=== PATIENT | male | born 1970 | race Two or more races ===

== ENCOUNTER 2021-01-11 16:23 | Emergency (ER) | payer BC ==
[~2021-01-11] VITALS: Ht 170.2 cm; Wt 70.0 kg
[2021-01-11 16:23] VITALS: BP 142/88
--- NOTE | 2021-01-11 16:48 | PHYS DOC ---
Past Medical History Past Surgical History: Other Additional Past Surgical Histo: Atrial septal defect repair (age 18) General Adult EDM: Chief Complaint: CHEST PAIN HPI: HPI: Patient is a 50 year old male with history of ASD s/p repair at age 18 who presents with left-sided chest pain. Started approximately a week ago, accompanied by a cough. Worse with deep inspiration. Describes it is sharp and radiates to his left arm. Initially was associated with reflux, and improved after burping, but this is no longer the case. Slightly worse with movement of the left shoulder. No trauma to the shoulder or the chest. No lower extremity edema. Not exertional. Denies history of HTN, HLD, DM. He is a frequent tobacco smoker. He does have a left-sided facial twitch, and receives Botox injections on the left side of his face. His is concerned that he had slurred speech at 1 point. He complains of some tingling sensation in his bilateral hands that is intermittent. No weakness. Review of Systems: Review of Systems: Constitutional: Denies fever or chills. [] Eyes: Denies change in visual acuity. [] HENT: Denies nasal congestion or sore throat. [] Respiratory: Reports cough. Denies shortness of breath. [] Cardiovascular: Reports chest chest pain. Denies edema. [] GI: Denies abdominal pain, nausea, vomiting, bloody stools or diarrhea. [] : Denies dysuria. [] Musculoskeletal: Denies back pain or joint pain. [] Integument: Denies rash. [] Neurologic: Denies headache, focal weakness or sensory changes. [] Endocrine: Denies polyuria or polydipsia. [] Lymphatic: Denies swollen glands. [] Psychiatric: Denies depression or anxiety. [] Heart Score: C/O Chest Pain: Yes HEART Score for Chest Pain: HEART Score for Chest Pain Response (Comments) Value History Slighlty/Non-Suspicious 0 ECG Nonspecific Repolarizatio 1 Age >45 - < 65 1 Risk Factors 1 or 2 Risk Factors 1 Troponin < Normal Limit 0 Total 3 Risk Factors: Risk Factors: smoking Risk Scores: Score 0 - 3: 2.5% MACE over next 6 weeks - Discharge Home Score 4 - 6: 20.3% MACE over next 6 weeks - Admit for Clinical Observation Score 7 - 10: 72.7% MACE over next 6 weeks - Early Invasive Strategies Physical Exam: PE: Constitutional: Well developed, well nourished, no acute distress, non-toxic appearance. [] HENT: Normocephalic, atraumatic, bilateral external ears normal, oropharynx moist, no oral exudates, nose normal. [] Eyes: PERRLA, EOMI, conjunctiva normal, no discharge. [] Neck: Normal range of motion, no tenderness, supple, no stridor. [] Cardiovascular:Heart rate regular rhythm, no murmur [] Lungs & Thorax: Bilateral breath sounds clear to auscultation [] Abdomen: Bowel sounds normal, soft, no tenderness, no masses, no pulsatile masses. [] Skin: Warm, dry, no erythema, no rash. [] Back: No tenderness, no CVA tenderness. [] Extremities: No tenderness, no cyanosis, no clubbing, ROM intact, no edema. [] Neurologic: Alert, oriented to person, place, time. Left-sided facial droop more prominent in the lower face (patient states he receives Botox injections in this area). Speech is normal. Cranial nerves III-XII intact (aside from where noted). 5/5 strength in bilateral upper and lower extremities in all dermatomes. No dysmetria with [id number] or [id number] testing. Gait is stable. Visual anthony intact. Follows commands. Psychologic: Affect normal, judgement normal, mood normal. [] EKG: EKG: Sinus rhythm. Rate 85. Left axis deviation. Left atrial abnormality. Incomplete right bundle branch block. [] Radiology/Procedures: Radiology/Procedures: [] Impression: [facility] [address] [place] [address] IMAGING REPORT Signed PATIENT: CLARK DOMINGUEZ V ACCOUNT: [id number] : 1970 LOCATION: ER AGE: 50 SEX: M EXAM STATUS: PRE ER ORD. PHYSICIAN: MARCUS MUELLER MD REASON: left sided chest pain PROCEDURE: CHEST AP ONLY EXAM: CHEST 1 VIEW History: Left-sided chest pain COMPARISON: None available. TECHNIQUE: Single portable radiograph of the chest FINDINGS: The cardiac silhouette is unremarkable. The lungs are clear bilaterally. The costophrenic sulci are clear and well demarcated. IMPRESSION: No radiographic evidence of an acute cardiopulmonary process. Electronically signed by: Noam Griggs MD (01/11/2021 4:53 PM) [id number] DICTATED and SIGNED BY: NOAM GRIGGS MD DATE: 01/11/21 [id number] 0 Course & Med Decision Making: Course & Med Decision Making Pertinent Labs and Imaging studies reviewed. (See chart for details) Patient a 50-year-old male with history of remote ASD repair who presents with left-sided sharp/pleuritic chest pain associated with cough. On arrival is afebrile, hemodynamically stable. Well-appearing on exam. Distal pulses intact. Doubt aortic injury. Consider PE. D-dimer ordered. EKG is very abnormal with right bundle branch block, left axis deviation, left atrial abnormality. Unclear chronicity of this EKG change with history of ASD repair. Single phone should be sufficient to rule out myocardial injury given duration of pain. We will obtain chest x-ray, and basic labs. No subdiaphragmatic tenderness to palpation to suggest an intra-abdominal process. Neurologic examination is entirely normal aside from where he receives facial injections of Botox. 1648 Chest x-ray without acute process. CBC, CMP unremarkable. D-dimer negative. Troponin negative. HEART score 3 (due to age, smoking history, and EKG changes that are likely attributable to ASD repair) No specific etiology was determined in the emergency department, however feel that this point is safe for outpatient follow-up. 1726 Teri Disclaimer: Teri Disclaimer: This electronic medical record was generated, in whole or in part, using a voice recognition dictation system. Departure Departure Impression: Primary Impression: Chest pain Disposition: HOME / SELF CARE / HOMELESS Condition: STABLE Additional Instructions: We did not find a dangerous/life-threatening cause for your chest pain today. Your chest x-ray and lab work were very reassuring. We did not find an exact reason for why you are having this discomfort. You can attempt Tylenol and ibuprofen for discomfort and see if this helps your symptoms. Please follow-up with a primary care provider if your symptoms persist If you do not have a PCP, please call the number for the [facility] at [phone]. Your Covid test is pending. Please self isolate until you know the results. This will take approximately 24-48 hours. You will be called with a positive result, but if it is negative you will not receive notification. If you desire, you can call the emergency department to ask for your results. MARCUS MUELLER MD Jan 11, 2021 16:48
[2021-01-11 16:54] LABS: BASO # 0.1 x10^3/uL (0.0-0.2); BASO % 1 % (0-3); EOS # 0.1 x10^3/uL (0.0-0.7); EOS % 2 % (0-3); HEMATOCRIT 46.4 % (39.0-53.0); HEMOGLOBIN 15.7 g/dL (13.0-17.5); LYMPH # 1.4 x10^3/uL (1.0-4.8); LYMPH % 18 % (24-48); MEAN CORPUSCULAR HEMOGLOBIN 30 pg (25-35); MEAN CORPUSCULAR HGB CONC 34 g/dL (31-37); MEAN CORPUSCULAR VOLUME 88 fL (79-100); MONO # 0.5 x10^3/uL (0.0-1.1); MONO % 7 % (0-9); NEUT # 5.6 x10^3/uL (1.8-7.7); NEUT % 72 % (31-73); PLATELET COUNT 240 x10^3/uL (140-400); RED BLOOD COUNT 5.27 x10^6/uL (4.30-5.70); RED CELL DISTRIBUTION WIDTH 12.9 % (11.5-14.5); WHITE BLOOD COUNT 7.8 x10^3/uL (4.0-11.0)
--- NOTE | 2021-01-11 16:55 | RAD ---
EXAM: CHEST 1 VIEW History: Left-sided chest pain COMPARISON: None available. TECHNIQUE: Single portable radiograph of the chest FINDINGS: The cardiac silhouette is unremarkable. The lungs are clear bilaterally. The costophrenic sulci are clear and well demarcated. IMPRESSION: No radiographic evidence of an acute cardiopulmonary process. Electronically signed by: Noam Griggs MD (01/11/2021 4:53 PM) [id number]
[2021-01-11 17:09] LABS: CALCIUM 8.7 mg/dL (8.5-10.1); CREATININE 0.9 mg/dL (0.7-1.3); GFR 89.3
[2021-01-11 17:15] LABS: ALBUMIN 3.8 g/dL (3.4-5.0); TOTAL BILIRUBIN 0.9 mg/dL (0.2-1.0); TOTAL PROTEIN 7.7 g/dL (6.4-8.2)
--- NOTE | 2021-01-12 16:28 | NUR ---
IP: Informed pt of negative covid test. Pt verbalized understanding.
== END 2021-01-11 17:50 | disposition home or self-care (01) ==
LOC: ER 16:23
DX: R07.89 Other chest pain (principal); R05.9 Cough, unspecified; R47.81 Slurred speech; Z20.822 Contact with and (suspected) exposure to COVID-19
CPT/HCPCS: 36415; 71045; 80053; 84484; 85025; 85379; 87426; 93005; 99285; U0003; U0005